=== PATIENT | female | born 1945 | race Caucasian/White ===

== ENCOUNTER → 2017-01-06 | Outpatient (CLI) | payer MEDICARE | LOC: RT 17:14 | PROVIDERS: ATTEND Internal Medicine | DX: R53.83 Other fatigue (principal); I10 Essential (primary) hypertension; R07.89 Other chest pain | CPT/HCPCS: 94762 ==

== ENCOUNTER → 2017-01-07 | Outpatient (CLI) | payer MEDICARE ==
[2017-01-07 08:08] LABS: BASOPHILS % (AUTO) 1 % (0-2); EOSINOPHILS # (AUTO) 0.2 10^3uL; EOSINOPHILS % (AUTO) 5 % (0-4); LYMPHOCYTES # (AUTO) 1.6 X10^3; MEAN CORPUSCULAR HEMOGLOBIN 29.4 PG (26.0-34.0); MEAN CORPUSCULAR HGB CONC 32.8 g/dL (31.0-37.0); MEAN CORPUSCULAR VOLUME 90 FL (80-100); MEAN PLATELET VOLUME 9.7 FL (6.0-9.5); MONOCYTES # (AUTO) 0.4 X10^3; MONOCYTES % (AUTO) 10 % (3-11); NEUTROPHILS # (AUTO) 1.7 X10^3; NEUTROPHILS % (AUTO) 44 % (51-67); PLATELET COUNT 258 10^3uL (150-450); WHITE BLOOD COUNT 3.96 10^3uL (4.0-11.0)
[2017-01-07 08:43] LABS: ALBUMIN 3.7 g/dL (3.4-5.0); ALKALINE PHOSPHATASE 55 U/L (38-126); ANION GAP 9.7 MEQ/L (3-15); BUN/CREATININE RATIO 24 (10-20); CALCULATED IONIZED CALCIUM 4.8 mg/dL (3.8-4.6); TOTAL PROTEIN 5.9 g/dL (6.4-8.5)
== END ==
LOC: LAB 07:50
PROVIDERS: ATTEND Internal Medicine
DX: Z00.00 Encounter for general adult medical examination without abnormal findings (principal); I10 Essential (primary) hypertension; K21.9 Gastro-esophageal reflux disease without esophagitis; G62.9 Polyneuropathy, unspecified; E78.5 Hyperlipidemia, unspecified
CPT/HCPCS: 36415; 80053; 80061; 84443; 84484; 85025; 86140

== ENCOUNTER 2017-01-31 06:00 | Observation (INO) | payer MEDICARE ==
[~2017-01-31] VITALS: Ht 165.1 cm; Wt 69.4 kg
[~2017-01-31 06:00] MED LIST: ASPI-860 PO; BACL20TA PO; CYCL10TA45 PO; DNPZ10T PO; LSRT50T PO; METO2.5T PO; OMEP20CA12 PO; OXB5T PO; PIND10TA PO; POTA10TA36 PO; PRAV40TA2 PO
--- OUTSIDE RECORDS SUMMARY | 2017-01-31 06:05 | XMS REPORT ---
Author Author Kin Jeffers Organization [facility] Address [address] [place] [address] Care Team Providers Care Inspector General Name Role Phone Kin Jeffers Unavailable [phone] PROBLEMS Type Condition ICD9-CM Code OMI55-AS Code Onset Dates Condition Status SNOMED Code Problem Chest pain R07.9 Active 02557560 Problem Abnormal cardiovascular stress test R94.39 Active [id number] ALLERGIES Unknown Allergies SOCIAL HISTORY No smoking Hx information available PLAN OF CARE VITAL SIGNS MEDICATIONS Unknown Medications RESULTS No Results PROCEDURES No Known procedures IMMUNIZATIONS No Known Immunizations
[2017-01-31] MEDS ORDERED: ONDANSETRON 2 MG/ML (Z0FRAN) 2 ML VIAL IV ONE (06:30)
[2017-01-31] MEDS ORDERED: KETOROLAC 30 MG/ML (TORADOL) 1 ML VIAL IV ONE (06:30)
[2017-01-31] MEDS ORDERED: ATOR10TA PO (06:30)
[2017-01-31] MEDS ORDERED: METO25TA60 PO (06:30)
[2017-01-31] MEDS ORDERED: SODIUM CHLORIDE FLUSH 3 ML SYR IV ONE (06:30)
[2017-01-31] MEDS ORDERED: HYDROmorphone 1 MG/ML (DILAUDID) SYRINGE IV ONE ×3 (06:30→10:00)
[2017-01-31 06:43] LABS: BASOPHILS % (AUTO) 1 % (0-2); EOSINOPHILS # (AUTO) 0.1 10^3uL; EOSINOPHILS % (AUTO) 2 % (0-4); LYMPHOCYTES # (AUTO) 1.5 X10^3; MEAN CORPUSCULAR HEMOGLOBIN 29.4 PG (26.0-34.0); MEAN CORPUSCULAR HGB CONC 33.7 g/dL (31.0-37.0); MEAN CORPUSCULAR VOLUME 87 FL (80-100); MEAN PLATELET VOLUME 9.3 FL (6.0-9.5); MONOCYTES # (AUTO) 0.6 X10^3; MONOCYTES % (AUTO) 9 % (3-11); NEUTROPHILS # (AUTO) 4.7 X10^3; NEUTROPHILS % (AUTO) 67 % (51-67); PLATELET COUNT 325 10^3uL (150-450); WHITE BLOOD COUNT 6.94 10^3uL (4.0-11.0)
[2017-01-31] MEDS: SODIUM CHLORIDE FLUSH 10 ML SYR IV PRN ×6 (06:47→21:17)
[2017-01-31 06:57] LABS: ALBUMIN 3.8 g/dL (3.4-5.0); ALKALINE PHOSPHATASE 72 U/L (38-126); ANION GAP 11.4 MEQ/L (3-15); BUN/CREATININE RATIO 15 (10-20); CALCULATED IONIZED CALCIUM 4.2 mg/dL (3.8-4.6); TOTAL PROTEIN 6.2 g/dL (6.4-8.5)
--- NOTE | 2017-01-31 07:15 | NUR ---
BEDSIDE REPORT GIVEN TO LIBBY MOORE. PT TO RADIOLOGY DEPARTMENT FOR CT SCAN.
[2017-01-31 08:08] LABS: BILIRUBIN,URINE Negative (Negative); CLARITY,URINE Clear; COLOR,URINE Yellow; GLUCOSE, URINE (UA) Negative (Negative); LEUKOCYTE ESTERASE ,URINE Negative (Negative); PH,URINE 7.5 (5.0 - 8.0); UROBILINOGEN,URINE 0.2 mg/dL (0.2-1.0)
--- NOTE | 2017-01-31 08:30 | Diagnostic Imaging Report ---
PROCEDURE: CT abdomen and pelvis without contrast. TECHNIQUE: Multiple contiguous axial images were obtained through the abdomen and pelvis without the use of intravenous contrast. INDICATION: Left flank pain and left lumbosacral pain COMPARISON STUDY: None FINDINGS: Mild atelectasis is present in the lung bases. Gallbladder is absent. The liver, pancreas, spleen, adrenal glands, and kidneys appear normal. No renal calculi or hydronephrosis is present. Urinary bladder is normal. Uterus and adnexal structures appear unremarkable. There is normal appearance of the appendix. The bowel loops demonstrate diffuse diverticuli. No inflammation is present. Moderate amount of stool is present in the right side of the colon. No ascites, free air or abnormal adenopathy is present. Mild to moderate arteriosclerosis is present. No aneurysms are identified. The osseous structures demonstrate degenerative changes of the lower lumbar spine. IMPRESSION: 1. There is some increased stool in the right side of the colon, possible mild constipation. 2. Mild to moderate arteriosclerosis and moderate degenerative changes of the spine are present. 3. Diverticulosis without inflammation. Dictated by: Dictated on workstation # [id number]
[2017-01-31] MEDS ORDERED: ORPHENADRINE 60 MG/2 ML (NORFLEX) AMP IV ONE (09:00)
[2017-01-31] MEDS ORDERED: NS IV 500 ML 500 ML IV SCH (10:00)
--- NOTE | 2017-01-31 11:40 | NUR ---
Pt admitted to Rm 310 via w/c accompanied by Con Soriano RN. AAOx4, ambulates with SBA to weight chair and to bed. Rates pain 5/10 at this time. States the pain in L groin is better. No facial grimacing or guarding noted. 20g SL to L wrist intact. See admission database for additional assessment info.
[2017-01-31 11:51] VITALS: BP 136/71
--- NOTE | 2017-01-31 12:10 | History and Physical (E) ---
History & Physical PCP: MD Dr. Zeyad Angel- punch press setter Dr Muñoz - ortho Dr Metz- Rheumatology CC: Left hip and groin pain HPI: Edna is a 71 year old female admitted through ED 01-31-17 for left hip and groin pain. It has been bothering her for about 2 weeks and got worse this am. She reports limping when she walks. It is a sharp pain in her hip region and radiates down her left leg. CT abdomen done was unremarkable. No fevers, no trauma, no falls, it was thought to be related possible to her Lipitor. PMH: Chronic Myelopathy Poly neuropathy Diverticulosis GERD CAD [place] HLD HTN PSH: Lou T&A Dental extraction Cataracts bilaterally Cardiac cath - Dr Jeffers- minimal disease CMC arthroplasty Bone graft De Quervains release ALLERGIES: Please see list at end of report. HOME MEDICATIONS: Please see list at end of report. FH; Adopted SH: , non smoker, rare alcohol, has 3 children, active and drives - lives at home ROS: CONSTITUTION: Denies weight loss or gain. Denies fever or chills. HEENT: No change in vision or hearing. No sores in mouth, sore throat. CV: No chest pain, palpitations. PULM: No cough, shortness of breath, difficulty breathing. GI: No upset stomach, nausea, vomiting, constipation, or diarrhea. No blood in stool. : No dysuria. No blood in urine. MS: Endorses left hip and groin pain. NEURO: No numbness or tingling. No weakness. INTEG: No rashes, lesions, or sores. ENDO: No heat or cold intolerance. No polydipsia or polyuria. HEME/LYMPH: No easy bruising or bleeding. No swollen glands. PSYCH: No change in mood or behavior. OBJECTIVE Vitals: Vital Signs Date Time Temp Pulse Resp B/P Pulse Ox O2 Delivery O2 Flow Rate FiO2 01/31/17 11:51 97.4 73 18 01/31/17 11:46 95 Room Air 2 01/31/17 06:11 155/72 GEN: Awake, alert, oriented, NAD- resting in bed HEENT: EOMI, PERRL, moist oral mucosa. CV: RRR S1 S2 normal with no murmur LUNGS: CTA B ABD: Soft, NT/ND with normal bowel sounds. EXTR: No C/C/E. Normal peripheral pulses. INTEG: No rash. MS- tender to palpation over left hip and gluteal region NEURO: No focal motor neuro deficit. Weight: 69.4 kg LABS CBC BMP Last 24 Hrs 01/31/17 06:35 Laboratory Results Past 24 Hrs 01/31/17 06:35: Alanine Aminotransferase (ALT/SGPT) 112, Albumin 3.8, Albumin/Globulin Ratio 1.583, Alkaline Phosphatase 72, Anion Gap 11.4, Aspartate Amino Transf (AST/SGOT ) 69, BUN/Creatinine Ratio 15, Basophils # (Auto) 0.1, Basophils (%) (Auto) 1, Blood Urea Nitrogen 10, C-Reactive Protein < 0.50, Calcium Level 8.8, Calcium/ Ionized Calcium Ratio 4.2, Calculated Osmolality 250, Carbon Dioxide Level 28, Chloride Level 95, Creatinine 0.67, Eosinophils # (Auto) 0.1, Eosinophils (%) ( Auto) 2, Estimat Glomerular Filtration Rate 104.4, Estimated GFR (Non- 86.3, Glucose Level 99, Hematocrit 34.70, Hemoglobin 11.7, Lipase 82, Lymphocytes # (Auto) 1.5, Lymphocytes (%) (Auto) 21, Mean Corpuscular Hemoglobin 29.4, Mean Corpuscular Hemoglobin Concent 33.7, Mean Corpuscular Volume 87, Mean Platelet Volume 9.3, Monocytes # (Auto) 0.6, Monocytes (%) (Auto ) 9, Neutrophils # (Auto) 4.7, Neutrophils (%) (Auto) 67, Platelet Count 325, Potassium Level 4.2, Red Blood Count 3.98, Red Cell Distribution Width 13.0, Sodium Level 130, Total Bilirubin 0.6, Total Creatine Kinase 323, Total Protein 6.2, White Blood Count 6.94 01/31/17 08:00: Urine Bilirubin Negative, Urine Blood Negative, Urine Clarity Clear, Urine Collection Type Clean catch, Urine Color Yellow, Urine Glucose (UA) Negative, Urine Ketones Negative, Urine Leukocyte Esterase Negative, Urine Nitrite Negative, Urine Protein Negative, Urine Specific Henderson 1.020, Urine Urobilinogen 0.2, Urine pH 7.5 IMAGING: CT Abdomen FINDINGS: Mild atelectasis is present in the lung bases. Gallbladder is absent. The liver, pancreas, spleen, adrenal glands, and kidneys appear normal. No renal calculi or hydronephrosis is present. Urinary bladder is normal. Uterus and adnexal structures appear unremarkable. There is normal appearance of the appendix. The bowel loops demonstrate diffuse diverticuli. No inflammation is present. Moderate amount of stool is present in the right side of the colon. No ascites, free air or abnormal adenopathy is present. Mild to moderate arteriosclerosis is present. No aneurysms are identified. The osseous structures demonstrate degenerative changes of the lower lumbar spine. IMPRESSION: 1. There is some increased stool in the right side of the colon, possible mild constipation. 2. Mild to moderate arteriosclerosis and moderate degenerative changes of the spine are present. 3. Diverticulosis without inflammation. ASSESSMENT/PLAN Edna Wagoner) is a 71 year old female admitted 01-31-17 through the ER for left hip and left groin pain attributed ? Sciatica ? medication (Lipitor?) having difficulties walking- will check CT spine due to degenerative changes HTN HLD CAD GERD Polyneuropathy F/V/E- regular diet Code Status- Full code Disposition- Observation for above issues- will check CT of lumbar spine- see orders January We did at once order a ct of the lumbar spine which did show marked spinal stenosis and a bulging disk in the L4-5 area. We do not yet have the typed report on the computer, but we do now know why she is having pain and that the pain is significant. Allergies/Home Medications Allergies: Coded Allergies: AMIRA Inhibitors (Verified Allergy, Unknown, 04/04/16) Latex, Natural Rubber (Verified Allergy, Unknown, 01/31/17) Penicillins (Verified Allergy, Unknown, 01/31/17) adhesive tape (Verified Allergy, Unknown, 01/31/17) erythromycin base (Verified Allergy, Unknown, 01/31/17) iodine (Verified Allergy, Unknown, 01/31/17) Reported Home Medications Scheduled Aspirin (Aspirin) 81 MG PO DAILY (Reported) Atorvastatin (Lipitor) 10 MG PO UD (Reported) Baclofen (Baclofen) 20 MG PO TID (Reported) Donepezil HCl (Donepezil HCl) 10 MG PO HS (Reported) Losartan Potassium (Losartan Potassium) 50 MG PO HS (Reported) Metolazone (Metolazone) 2.5 MG PO MoWeFr@0900 (Reported) Metoprolol Tartrate (Metoprolol Tartrate) 25 MG PO UD (Reported) Omeprazole (Omeprazole) 2 CAP PO DAILY (Reported) Pindolol (Visken) 0.5 TAB PO AM (Reported) Pindolol (Visken) 1 TAB PO PM (Reported) Potassium Chloride (Potassium Chloride) 10 MEQ PO TID (Reported) Pravastatin Sodium (Pravastatin Sodium) 1 TAB PO DAILY (Reported) Scheduled PRN Cyclobenzaprine HCl (Flexeril) 5 MG PO HS PRN PRN SPASMS (Reported) Nitroglycerin (ED- Nitroquick 0.4mg #25) 0.4 MG SL UD PRN PRN prn (Reported) Oxybutynin Chloride (Ditropan) 5 MG PO NOON PRN PRN URINARY DISCOMFORT (Reported ) Copies to: End of Report . Mariam Gotti [facility] LIAISON Jan 31, 2017 12:10 KATALINA TIMMONS DO Jan 31, 2017 14:09
[2017-01-31] MEDS ORDERED: ONDANSETRON 2 MG/ML (Z0FRAN) 2 ML VIAL IV PRN (12:35)
[2017-01-31] MEDS ORDERED: PROMETHAZINE HCL INJ 12.5 MG in SODIUM CHLORIDE 25 ML IV PRN (12:35)
[2017-01-31] MEDS ORDERED: ACETAMINOPHEN 325 MG TAB (TYLENOL) PO PRN (12:35)
[2017-01-31] MEDS ORDERED: [UNRECOGNIZED DRUG - CODE] SL (13:38)
[2017-01-31] MEDS ORDERED: DNPZ10T PO (13:38)
[2017-01-31] MEDS ORDERED: NALBUPHINE 10 MG/ML (NUBAIN) 1 ML AMP IV PRN (14:00)
--- NOTE | 2017-01-31 15:25 | NUR ---
PRN Chellebain given at this time SIVP. Pt denies other needs. States "I hope this knocks me out". Rates her pain "quite severe". Will continue to monitor.
[2017-01-31 15:35] VITALS: BP 138/70
--- NOTE | 2017-01-31 16:50 | NUR ---
Pt states Nubain did not touch her pain. Dr Partida notified, new orders entered.
[2017-01-31] MEDS: HYDROmorphone 1 MG/ML (DILAUDID) SYRINGE IV PRN ×2 (17:49→21:17)
--- NOTE | 2017-01-31 17:50 | NUR ---
Cont pulse ox placed. 88-89% on RA. 2L NC placed at this time per Aleshia, RT. PRN Dilaudid given at this time for severe hip pain. Skin warm, dry, intact. Resprs nonlabored, even on RA. Call light within reach. Denies other needs.
[2017-01-31] MEDS ORDERED: LACT1CAP8 PO (18:03)
[2017-01-31] MEDS ORDERED: MULT-1034 PO (18:03)
[2017-01-31] MEDS ORDERED: UBID1CAP51 PO (18:03)
[2017-01-31] MEDS ORDERED: VITA150T PO (18:03)
[2017-01-31] MEDS ORDERED: CA C1TAB76 PO (18:03)
[2017-01-31] MEDS ORDERED: CHOL2000 PO (18:03)
[2017-01-31] MEDS ORDERED: NITROGLYCERIN SL PRN (18:10)
[2017-01-31] MEDS ORDERED: OXYBUTYNIN 5 MG PO PRN (18:10)
--- NOTE | 2017-01-31 18:17 | NUR ---
MED REC COMPLETED-current med list obtained from Ext Med History application, patient listing, and patient interview.
[2017-01-31] MEDS ORDERED: NITROGLYCERIN SUBLINGUAL 0.4 MG (NITROQUICK) TABLET SL PRN (18:25)
--- NOTE | 2017-01-31 18:28 | NUR ---
Sats 97% on 2L, HR 69. Pt rates pain "6-7" at this time. States the Dilaudid "worked faster and took the edge off". Water refreshed. Denies other needs.
[2017-01-31] MEDS: KETOROLAC 15 MG/ML (TORADOL) 1 ML VIAL IV PRN (19:31)
--- NOTE | 2017-01-31 19:35 | NUR ---
Toradol 15 mg IV given for back pain rated "5". O2 at 2L via NC applied; cont pulse ox reads 96% currently. Pt. repositioned self for comfort; additional pillows available. Call light and H2O within reach.
[2017-01-31] MEDS: meTOprolol TARTRATE 25 MG (LOPRESSOR) TABLET PO SCH (20:26)
[2017-01-31] MEDS ORDERED: DONEPEZIL 10 MG (ARICEPT) TAB PO SCH (21:00)
[2017-01-31] MEDS ORDERED: LOSARTAN 50 MG (COZAAR) TABLET PO SCH (21:00)
--- NOTE | 2017-01-31 21:20 | NUR ---
Dilaudid 0.5 mg IV given for pain in back rated "4". Pt. just to and fro bathroom; O2 at 2L via NC; currently eating soda cracker; H2O and call light within reach.
--- NOTE | 2017-01-31 22:45 | NUR ---
Pt. resting quietly; resp are even and unlabored on 2L of O2 via NC; appears to be in no distress.
[2017-01-31 23:49] VITALS: BP 126/61
--- NOTE | 2017-02-01 01:15 | NUR ---
Pt. resting quietly; O2 at 2L via NC; pt. appears to be in no distress. Call light and H2O within reach.
[2017-02-01] MEDS: HYDROmorphone 1 MG/ML (DILAUDID) SYRINGE IV PRN ×2 (03:45→08:50)
--- NOTE | 2017-02-01 03:45 | NUR ---
Dilaudid 0.5 mg IV given for back pain rated "4". Pt. just to and fro bathroom; unsteady gait.
--- NOTE | 2017-02-01 06:25 | NUR ---
Pt. takes Protonix without difficulty; up to ambulate to and fro bathroom again; output since 2300: 1650 cc's; light yellow urine. O2 at 2L via NC with SATS at 94%; resp are unlabored. Pt. denies need for pain med currently. Pt. is pleasant and cooperative; call light and H2O within reach.
[2017-02-01] MEDS ORDERED: PANTOPRAZOLE 40 MG (PROTONIX) TAB PO SCH (07:00)
[2017-02-01 07:23] VITALS: BP 138/67
[2017-02-01] MEDS: KETOROLAC 15 MG/ML (TORADOL) 1 ML VIAL IV PRN (07:38)
[2017-02-01] MEDS: POTASSIUM CHLORIDE ER 10 MEQ CAPSULE PO SCH ×2 (07:49→12:15)
[2017-02-01] MEDS: meTOprolol TARTRATE 25 MG (LOPRESSOR) TABLET PO SCH (07:49)
[2017-02-01] MEDS ORDERED: NON-FORMULARY MEDICATION 1 EA EA (Potassium Chloride 10 MEQ) PO SCH (08:00)
--- NOTE | 2017-02-01 08:03 | NUR ---
O2 sat 92-95% without O2. Alert and oriented x4. Skin w/p/d.
--- NOTE | 2017-02-01 08:14 | NUR ---
O2 noted to desat to 89% when patient attempting to sleep. States unknown sleep apnea. O2 reapplied at 2L/NC.
[2017-02-01] MEDS: SODIUM CHLORIDE FLUSH 10 ML SYR IV PRN (08:50)
[2017-02-01] MEDS ORDERED: ATORVASTATIN 10 MG (LIPITOR) TABLET PO SCH (09:00)
[2017-02-01] MEDS ORDERED: NON-FORMULARY MEDICATION 1 EA EA (Ubidecarenone/Vit E Acetate (Co Q-10 100 mg Softgel) 1 E PO SCH (09:00)
[2017-02-01] MEDS ORDERED: NON-FORMULARY MEDICATION 1 EA EA (Aspirin 81 MG) PO SCH (09:00)
[2017-02-01] MEDS ORDERED: ASPIRIN 81 MG CHEW (LOW-DOSE) PO SCH (09:00)
[2017-02-01] MEDS ORDERED: COENZYME Q10 100 MG CAPSULE PO SCH (09:00)
--- NOTE | 2017-02-01 11:30 | NUR ---
Patient sitting up in bed awake. Oxygen saturation 97% on 2L, titrated to roomair. Patient agrees to inform nurse if feeling short of air. Will continue to monitor.
[2017-02-01] MEDS ORDERED: HYDROmorphone (DILAUDID) 2 MG TAB PO PRN (11:50)
--- NOTE | 2017-02-01 15:00 | Discharge Summary (E) ---
Discharge Summary (A) Admit Date/Time Jan 31, 2017 at 11:29 Discharge Date/Time Admitting Provider Katalina Partida DO Primary Care Provider Camila Jay MD Attending Provider Katalina Partida DO Consulting Provider Admission Diagnosis Severe low back and left radicular pain History and Present Illness pt has had severe pain for weeks inher left buttock and her left leg down to her knee. Hospital Course and Treatment pt was admitted yesterday and was placed on IV fluids and iv pain meds. The dilaudid did a good job of pain control. Diet- cardiac Code Status-full DVT prophylaxis- none Disposition- Discharge to home Discharge Physicial Exam Physical Exam General--Awake and alert. No distress. HEENT--Normocephalic. MMM in oral cavity. Lungs--Clear to auscultation bilaterally. Nonlabored respirations. Heart--RRR. No murmurs. Abdomen--Normal bowel sounds. Soft. Nondistended. Nontender. Extremities--No edema. Discharge Provider's Instructions Take the analgesic as prescribed and take your other meds as prescribed. Activity Guidelines as tolerated. Guard your low back. Appointment Reminider Please make appt. to see your PCP on this next Friday or Friday. Discharge Medications New Medications: Hydromorphone HCl (Dilaudid) 2 Mg Tablet 2 MG PO Q3H take 1/4 tablet [0.5 mg] q3h for pain PRN PAIN #10 TAB Continued Medications: Aspirin (Aspirin) 81 Mg Tablet.dr 81 MG PO DAILY TAB Atorvastatin (Lipitor) 10 Mg Tablet 10 MG PO DAILY TAB Baclofen (Baclofen) 20 Mg Tablet 20 MG PO TID Ca Carb/Vit D3/Mag Ox/Zn Oxide (Jaylen Mag Zinc + D Tablet) 1 Each Tablet 1 TAB PO DAILY@1200 TAB Cholecalciferol (Vitamin D3) (Vitamin D) 2,000 Unit Capsule 2000 UNIT PO DAILY Vitamin/Mineral Supplemnt Ref 0 CAP Cyclobenzaprine HCl (Flexeril) 10 Mg Tablet 5 MG PO HS PRN SPASMS Ref 0 TAB Donepezil HCl (Donepezil HCl) 10 Mg Tablet 10 MG PO HS Lactobacillus Acidophilus (Acidophilus) 1 Each Capsule 1 EACH PO DAILY@1200 CAP Losartan Potassium (Losartan Potassium) 50 Mg Tablet 50 MG PO HS Metolazone (Metolazone) 2.5 Mg Tablet 2.5 MG PO MoWeFr@0900 TAB Metoprolol Tartrate (Metoprolol Tartrate) 25 Mg Tablet 12.5 MG PO BID WITH MEALS TAB Mu-Vits-Min Th/Lycopene/Lutein (Centrum Silver Tablet) 1 Each Tablet 1 TAB PO DAILY TAB Nitroglycerin (ED- Nitroquick 0.4mg #25) 25 Tab/Btl Tab.subl 0.4 MG SL UD PRN prn Omeprazole (Omeprazole) 20 Mg Capsule.dr 20 MG PO DAILY@0700 CAP Oxybutynin Chloride (Ditropan) 5 Mg Tab 5 MG PO NOON PRN URINARY DISCOMFORT Potassium Chloride (Potassium Chloride) 10 Meq Tab.er.prt 10 MEQ PO TIDWM Ubidecarenone/Vit E Acetate (Co Q-10 100 mg Softgel) 1 Each Capsule 1 EACH PO DAILY CAP Vitamin B Complex & Vit C No.4 (Super B Complex) 150 Mg Tablet 150 MG PO DAILY TAB Follow up Comment Patient promises to see her PCP on Friday or Friday to get additional medications. Discharge Diagnosis 1. severe pain in left buttock and radicular pain down left leg 2.lumbar spinal stenosis 3.bulging lumbar disk [s] 4.hypertension Copies to: Additional Provider: CAMILA JAY MD End of Report . KATALINA PARTIDA DO Feb 01, 2017 15:00
[2017-02-01] MEDS ORDERED: HDR2T PO (15:07)
--- NOTE | 2017-02-01 15:42 | NUR ---
Reviewed discharge medications with patient. Provided patient handout information for new medications. No additional questions or concerns. Patient verbalized understanding of medications.
--- NOTE | 2017-02-01 15:56 | NUR ---
Patient reports lower left back pain rated 2/10 on pain scale after PO Dilaudid. Discharge order received. IV discontinued with catheter intact. No redness or swelling noted at insertion site. Instructions provided to patient and with verbal and written understanding expressed. Prescription for pain medication provided. Dismissed via wheelchair to private car accompanied by and ADULT HEALTH CLINICAL NURSE SPECIALIST. No further needs.
== END 2017-02-01 15:56 | disposition home or self-care (01) ==
LOC: ED 06:03 → MED/SURG 11:29
DX: M51.16 Intervertebral disc disorders with radiculopathy, lumbar region (principal); M48.06 Spinal stenosis, lumbar region; I10 Essential (primary) hypertension; E78.5 Hyperlipidemia, unspecified; I25.10 Atherosclerotic heart disease of native coronary artery without angina pectoris; K21.9 Gastro-esophageal reflux disease without esophagitis; G62.9 Polyneuropathy, unspecified; Z79.82 Long term (current) use of aspirin
CPT/HCPCS: 36415; 74176; 80053; 81003; 82550; 83690; 85025; 86140; 94762; 96361; 96374; 96375; 96376; 99285; A9270; G0378; J1170; J1885; J2300; J2360; J2405; J7030; J7040; 99218; 99284

== ENCOUNTER → 2017-02-07 | Outpatient (CLI) | payer MEDICARE ==
[~2017-02-07] MED LIST changes: +ATOR10TA PO; +CA C1TAB76 PO; +CHOL2000 PO; +HDR2T PO; +LACT1CAP8 PO; +METO25TA60 PO; +MULT-1034 PO; +UBID1CAP51 PO; +VITA150T PO; +[UNRECOGNIZED DRUG - CODE] SL; +methylPREDNISolone 80 MG/ML (DEPO MEDROL) VIAL IM ONE
[2017-02-07 10:43] LABS: BASOPHILS % (AUTO) 2 % (0-2); EOSINOPHILS # (AUTO) 0.1 10^3uL; EOSINOPHILS % (AUTO) 3 % (0-4); MEAN CORPUSCULAR HEMOGLOBIN 29.1 PG (26.0-34.0); MEAN CORPUSCULAR HGB CONC 32.8 g/dL (31.0-37.0); MEAN CORPUSCULAR VOLUME 89 FL (80-100); MEAN PLATELET VOLUME 9.5 FL (6.0-9.5); MONOCYTES # (AUTO) 0.4 X10^3; MONOCYTES % (AUTO) 12 % (3-11); NEUTROPHILS # (AUTO) 1.7 X10^3; NEUTROPHILS % (AUTO) 52 % (51-67); PLATELET COUNT 371 10^3uL (150-450); WHITE BLOOD COUNT 3.28 10^3uL (4.0-11.0)
[2017-02-07 10:59] LABS: ALBUMIN 4.1 g/dL (3.4-5.0); ANION GAP 13.6 MEQ/L (3-15); CALCULATED IONIZED CALCIUM 4.4 mg/dL (3.8-4.6); TOTAL PROTEIN 6.7 g/dL (6.4-8.5)
--- NOTE | 2017-02-07 13:05 | Diagnostic Imaging Report ---
PROCEDURE: MRI lumbar spine. TECHNIQUE: Multiplanar, multisequence MRI of the lumbar spine was performed without contrast. INDICATION: Lumbar radiculopathy. COMPARISON: CT abdomen and pelvis without contrast 01/31/2017. FINDINGS: There are five lumbar type vertebral bodies. Normal alignment. Vertebral body heights are maintained. Degenerative endplate changes are most marked at L4-L5 where there is Modic type I signal in the endplates. Bone marrow signal is otherwise unremarkable. No abnormal signal in the conus which terminates at L1. Normal configuration of the cauda equina without evidence of arachnoiditis. Presumed right renal cyst. The visualized paravertebral soft tissues are otherwise unremarkable. L1-L2: No spinal canal, lateral recess or neural foraminal narrowing. L2-L3: Annular disc bulge and ligamentous hypertrophy results in moderate narrowing of the spinal canal and bilateral lateral recesses. No substantial neural foraminal narrowing. L3-L4: Annular disc bulge, ligamentous hypertrophy and facet arthropathy all contribute to moderate spinal canal and bilateral lateral recess narrowing. Disc space height loss also contributes to mild left neural foraminal narrowing. L4-L5: Annular disc bulge, ligamentous hypertrophy and facet arthropathy all contribute to advanced spinal canal narrowing. Disc space height loss also contributes to advanced neural foraminal narrowing bilaterally. L5-S1: No substantial spinal canal or lateral recess narrowing. Facet arthropathy contributes to moderate right and mild left foraminal narrowing. IMPRESSION: Spondylotic changes result in multilevel spinal canal, lateral recess and neural foraminal narrowing. This is most marked at L4-L5 where there is advanced spinal canal stenosis and bilateral neural foraminal narrowing. Dictated by: Dictated on workstation # [id number]
--- NOTE | 2017-02-10 09:40 | PAIN MANAGEMENT ---
Date of note: 02/07/2017 Procedure: Epidural steroid injection at L5-S1 The patient is a 71-year-old patient of Dr. José Miguel Jay. The patient presents with lumbar radiculopathy. She has a history of spinal stenosis. Informed consent was achieved for an epidural steroid injection at L5-S1. She has quite a bit of pain in the left leg, dermatome levels of L4-5 and L5-S1. Informed consent was achieved. Orders for procedure verified. Patient denies any bleeding tendencies. After informed consent obtained, the patient was positioned for the lumbar epidural steroid injection. The area was prepped and draped using aseptic technique. The skin and overlying tissues were localized using 3 mL of 1% Preservative-Free lidocaine using a 25-gauge 1.5-inch needle. A 20-gauge Tuohy needle was advanced, using "loss of resistance" technique, to the epidural space. No blood, cerebral spinal fluid, pain, or paresthesia noted on entry of the epidural space. A 1 mL solution of Depo-Medrol 80 mg was injected slowly without mass volume effect. The patient was placed in supine position 15 minutes prior to being released with proper leg strength and vitals. Pre- and post procedure vital signs stable with no sensory or motor deficit noted. Instruction on followup contact and care provided to the patient.
== END ==
LOC: RAD 10:30
PROVIDERS: ATTEND Internal Medicine
DX: M54.16 Radiculopathy, lumbar region (principal); M48.06 Spinal stenosis, lumbar region; I10 Essential (primary) hypertension; R74.8 Abnormal levels of other serum enzymes; E87.1 Hypo-osmolality and hyponatremia; D64.89 Other specified anemias
CPT/HCPCS: 36415; 72148; 80053; 82550; 85025; J1040

== ENCOUNTER → 2017-02-17 | Outpatient (CLI) | payer MEDICARE ==
[~2017-02-17] MED LIST changes: -methylPREDNISolone 80 MG/ML (DEPO MEDROL) VIAL IM ONE
--- NOTE | 2017-02-17 14:36 | Diagnostic Imaging Report ---
Indication: Postmenopausal. Examination: DEXA 02/17/2017 comparison: 11/02/2014 FINDINGS: This scan is considered osteopenic according to the World Health Organization guidelines. This indicates an increased risk of fracture. Treatment is advised. A followup DEXA in one year is recommended. Please refer to the detailed Bone Density report faxed separately from this report. IMPRESSION: Osteopenia with a slight increased fracture risk. Dictated by: Dictated on workstation # [id number]
--- NOTE | 2017-02-17 20:05 | Diagnostic Imaging Report ---
EXAMINATION: Screening mammogram dated 02/17/2017. COMPARISON: 11/15/2015 and 11/02/2014. The current study was also evaluated with a Computer Aided Detection (CAD) system. FINDINGS: The breasts are composed of heterogeneously dense tissues. These are stable. There are no new suspicious microcalcifications or dominant masses. IMPRESSION: 1. No mammographic evidence for malignancy. Yearly screening is recommended. ACR BI-RADS Category 1: Negative. Result letter will be mailed to the patient. Note: At least 10% of breast cancer is not imaged by mammography. Dictated by: Dictated on workstation # [id number]
== END ==
LOC: RAD 13:21
PROVIDERS: ATTEND Internal Medicine
DX: Z12.31 Encounter for screening mammogram for malignant neoplasm of breast (principal); Z78.0 Asymptomatic menopausal state; M85.89 Other specified disorders of bone density and structure, multiple sites
CPT/HCPCS: 77080; G0202

== ENCOUNTER → 2017-02-28 | Outpatient (CLI) | payer MEDICARE | LOC: RT 12:42 | PROVIDERS: ATTEND Internal Medicine | DX: R53.83 Other fatigue (principal); I10 Essential (primary) hypertension; R07.89 Other chest pain | CPT/HCPCS: 94060; 94726; 94729 ==